=== PATIENT | female | born 1995 | race Two or more races ===

== ENCOUNTER 2019-07-13 22:12 | Emergency (ER) | payer MEDICAID ==
[~2019-07-13] VITALS: Ht 162.6 cm; Wt 65.8 kg
[~2019-07-13 22:12] MED LIST: PRENCAP87 PO
[2019-07-13 22:30] VITALS: BP 124/76
== END 2019-07-14 02:04 | disposition left against medical advice (07) ==
LOC: ER 22:15
DX: J02.9 Acute pharyngitis, unspecified (principal); Z53.21 Procedure and treatment not carried out due to patient leaving prior to being seen by health care provider

== ENCOUNTER 2020-03-23 17:41 | Emergency (ER) | payer MEDICAID ==
[~2020-03-23] VITALS: Ht 162.6 cm; Wt 65.8 kg
[2020-03-23 18:52] VITALS: BP 133/78
== END 2020-03-23 19:39 | disposition home or self-care (01) ==
LOC: ER 17:41
DX: T17.208A Unspecified foreign body in pharynx causing other injury, initial encounter (principal); J02.9 Acute pharyngitis, unspecified; X58.XXXA Exposure to other specified factors, initial encounter; Y93.89 Activity, other specified; Y92.89 Other specified places as the place of occurrence of the external cause; Y99.8 Other external cause status
CPT/HCPCS: 70490; 81025

== ENCOUNTER 2021-04-27 10:41 | Emergency (ER) | payer MEDICAID ==
[~2021-04-27] VITALS: Ht 160 cm; Wt 69.4 kg
[2021-04-27 11:52] LABS: Basophils # (auto) 0 10 ^3/uL (0-0.2); Basophils % (auto) 0.5 % (0.0-2.0); Eosinophils # (auto) 0.3 10 ^3/uL (0-0.8); Eosinophils % (auto) 5.4 % (0.0-7.0); Hematocrit 38.4 % (36.0-46.0); Hemoglobin 13.2 g/dL (12.2-16.2); Lymphocytes # (auto) 2.1 10 ^3/uL (0.4-5.4); Lymphocytes % (auto) 35.3 % (10.0-50.0); Mean Corpuscular Hemoglobin 31.4 pg (28.0-32.0); Mean Corpuscular Hgb Conc. 34.3 g/dL (32.0-36.0); Mean Corpuscular Volume 91.6 fL (80.0-100.0); Monocytes # (auto) 0.4 10 ^3/uL (0-1.3); Monocytes % (auto) 6.2 % (0.0-12.0); Neutrophils # (auto) 3.1 10 ^3/uL (1.6-8.6); Neutrophils % (auto) 52.6 % (37.0-80.0); Nucleated Red Blood Cells % 0.1 %; Red Blood Cells 4.19 10^6/uL (4.0-5.20); Red Cell Distribution Width 13.1 % (11.8-14.3)
[2021-04-27 12:11] LABS: Urine Bacteria NONE SEEN /hpf (None Seen); Urine Blood Negative /uL (Negative); Urine Mucus FEW (None Seen); Urine Specific Gravity 1.029 (1.001-1.035); Urine WBC 12 /hpf (0 - 5)
[2021-04-27 12:18] LABS: Albumin 3.8 g/dL (3.4-5.0); Potassium 3.8 mmol/L (3.5-5.1)
[2021-04-27 12:22] LABS: BUN/Creatinine Ratio 11.9; Bilirubin, Total 0.5 mg/dL (0.2-1.0)
[2021-04-27 12:23] LABS: Amphetamine Screen, Urine NEGATIVE (NEGATIVE); Barbiturate Scree,Urine NEGATIVE (NEGATIVE); Benzodiazephine Screen, Urine NEGATIVE (NEGATIVE); Cannabinoid Screen, Urine NEGATIVE (NEGATIVE); Cocaine Screen, Urine NEGATIVE (NEGATIVE); Opiate Scree,Urine NEGATIVE (NEGATIVE); Phencyclidine Screen, Urine NEGATIVE (NEGATIVE)
[2021-04-27 13:18] LABS: Alcohol, Urine < 3.0 mg/dL (0-10)
[2021-04-27 13:34] VITALS: BP 129/80
[2021-04-27] MEDS ORDERED: LIDOCAINE 1% HCL (LOCAL ANESTH.) INJ 20ML MDV ONE (14:30)
[2021-04-27] MEDS ORDERED: cefTRIAXone SOD 1,000 MG VL IM ONE (14:30)
== END 2021-04-27 14:45 | disposition home or self-care (01) ==
LOC: ER 10:41
DX: O23.41 Unspecified infection of urinary tract in pregnancy, first trimester (principal); N39.0 Urinary tract infection, site not specified; J45.909 Unspecified asthma, uncomplicated; Z90.49 Acquired absence of other specified parts of digestive tract; Z79.899 Other long term (current) drug therapy; Z91.013 Allergy to seafood; Z3A.00 Weeks of gestation of pregnancy not specified
CPT/HCPCS: 36415; 76801; 76817; 80053; 80307; 81001; 84702; 85025; 96372; 99284; J0696; J2001

== ENCOUNTER → 2021-06-09 | Outpatient (CLI) | payer MEDICAID | END | disposition home or self-care (01) | LOC: LAB 10:10 | PROVIDERS: ATTEND Obstetrics & Gynecology | DX: Z34.80 Encounter for supervision of other normal pregnancy, unspecified trimester (principal) ==

== ENCOUNTER 2021-09-30 12:14 | Observation (INO) | payer MEDICAID | END 2021-09-30 13:35 | disposition home or self-care (01) | LOC: LDRP 12:14 | PROVIDERS: ADMIT Obstetrics & Gynecology; ATTEND Obstetrics & Gynecology | DX: O26.892 Other specified pregnancy related conditions, second trimester (principal); R42 Dizziness and giddiness; Z3A.27 27 weeks gestation of pregnancy | CPT/HCPCS: 59025; 81002; 94760; G0378 ==

== ENCOUNTER → 2021-11-25 | Outpatient (CLI) | payer MEDICAID ==
[2021-11-25 11:21] LABS: Basophils # (auto) 0 10 ^3/uL (0-0.2); Basophils % (auto) 0.2 % (0.0-2.0); Eosinophils # (auto) 0.2 10 ^3/uL (0-0.8); Eosinophils % (auto) 2.1 % (0.0-7.0); Hemoglobin 13.7 g/dL (12.2-16.2); Lymphocytes # (auto) 1.7 10 ^3/uL (0.4-5.4); Lymphocytes % (auto) 22.3 % (10.0-50.0); Mean Corpuscular Hemoglobin 31.8 pg (28.0-32.0); Mean Corpuscular Hgb Conc. 34.3 g/dL (32.0-36.0); Mean Corpuscular Volume 92.9 fL (80.0-100.0); Monocytes # (auto) 0.5 10 ^3/uL (0-1.3); Monocytes % (auto) 7.2 % (0.0-12.0); Neutrophils # (auto) 5.1 10 ^3/uL (1.6-8.6); Neutrophils % (auto) 68.2 % (37.0-80.0); Nucleated Red Blood Cells % 0.2 %; Red Cell Distribution Width 14.2 % (11.8-14.3); White Blood Cell 7.5 10^3/uL (4.4-10.8)
[2021-11-26 06:07] LABS: RPR Non Reactive (Non Reactive)
== END | disposition home or self-care (01) ==
LOC: LAB 10:40
PROVIDERS: ATTEND Obstetrics & Gynecology
DX: Z34.80 Encounter for supervision of other normal pregnancy, unspecified trimester (principal)
CPT/HCPCS: 36415; 84112; 85025; 86592

== ENCOUNTER 2021-11-29 20:05 | Observation (INO) | payer MEDICAID ==
[~2021-11-29] VITALS: Ht 162.6 cm; Wt 88.5 kg
[2021-11-29] MEDS ORDERED: LACTATED RINGER'S 1,000 ML IV ONE (20:45)
[2021-11-29] MEDS: TERBUTALINE SULFATE 1 MG/ML 1ML VIAL SC SCH ×3 (21:10→22:33)
[2021-11-29] MEDS ORDERED: NIF10C PO (21:12)
[2021-11-29] MEDS ORDERED: BETAMETHASONE ACET (30mg/5ml) 5ml Vial 6mg/ml IM ONE (21:15)
[2021-11-29] MEDS ORDERED: NIFEdipine 10 MG CAP PO ONE (21:15)
[2021-11-30] MEDS ORDERED: ONDA-144 PO (22:34)
== END 2021-11-29 23:40 | disposition home or self-care (01) ==
LOC: LDRP 20:05
PROVIDERS: ADMIT Obstetrics & Gynecology; ATTEND Obstetrics & Gynecology
DX: O60.03 Preterm labor without delivery, third trimester (principal); O09.213 Supervision of pregnancy with history of pre-term labor, third trimester; O26.893 Other specified pregnancy related conditions, third trimester; R11.0 Nausea; Z3A.36 36 weeks gestation of pregnancy
CPT/HCPCS: 59025; 81002; 94760; 96372; G0378; J0702; J3105

== ENCOUNTER 2021-11-30 21:27 | Observation (INO) | payer MEDICAID ==
[~2021-11-30] VITALS: Ht 162.6 cm; Wt 88.0 kg
[~2021-11-30 21:27] MED LIST changes: +NIF10C PO
[2021-11-30] MEDS ORDERED: BETAMETHASONE ACET (30mg/5ml) 5ml Vial 6mg/ml IM ONE (22:00)
[2021-11-30] MEDS ORDERED: ACETAMINOPHEN 325 MG TAB PO ONE (22:15)
[2021-11-30] MEDS ORDERED: ONDA-144 PO (22:34)
[2021-11-30 22:55] LABS: Basophils # (auto) 0 10 ^3/uL (0-0.2); Basophils % (auto) 0.2 % (0.0-2.0); Eosinophils # (auto) 0.1 10 ^3/uL (0-0.8); Eosinophils % (auto) 0.6 % (0.0-7.0); Hematocrit 37.6 % (36.0-46.0); Hemoglobin 12.5 g/dL (12.2-16.2); Lymphocytes # (auto) 1.9 10 ^3/uL (0.4-5.4); Lymphocytes % (auto) 20.7 % (10.0-50.0); Mean Corpuscular Hgb Conc. 33.3 g/dL (32.0-36.0); Monocytes # (auto) 0.7 10 ^3/uL (0-1.3); Monocytes % (auto) 7.9 % (0.0-12.0); Neutrophils # (auto) 6.6 10 ^3/uL (1.6-8.6); Neutrophils % (auto) 70.6 % (37.0-80.0); Red Blood Cells 4.04 10^6/uL (4.0-5.20); Red Cell Distribution Width 14.3 % (11.8-14.3); White Blood Cell 9.4 10^3/uL (4.4-10.8)
[2021-11-30 23:00] LABS: Urine Bacteria NONE SEEN /hpf (None Seen); Urine Blood Negative /uL (Negative); Urine Mucus FEW (None Seen); Urine Specific Gravity 1.034 (1.001-1.035); Urine WBC 11 /hpf (0 - 5)
[2021-11-30 23:10] LABS: INR 0.88 (0.9-1.15); Partial Thromboplastin Time 24.8 sec (24.6-33.4)
[2021-11-30 23:13] LABS: Protein, Urine 23.6 mg/dL (0.0-11.9)
[2021-11-30 23:14] LABS: Albumin 2.7 g/dL (3.4-5.0); Calcium 8.8 mg/dL (8.5-10.1); Potassium 4.1 mmol/L (3.5-5.1)
[2021-11-30 23:21] LABS: BUN/Creatinine Ratio 16.9; Bilirubin, Total 0.3 mg/dL (0.2-1.0); Total Protein 6.2 g/dL (6.4-8.2); Uric Acid 4.7 mg/dL (2.6-6.0)
== END 2021-11-30 23:50 | disposition home or self-care (01) ==
LOC: LDRP 21:27
PROVIDERS: ADMIT Obstetrics & Gynecology Obstetrics; ATTEND Obstetrics & Gynecology Obstetrics
DX: O62.9 Abnormality of forces of labor, unspecified (principal); O26.893 Other specified pregnancy related conditions, third trimester; R51.9 Headache, unspecified; O12.03 Gestational edema, third trimester; Z3A.36 36 weeks gestation of pregnancy
CPT/HCPCS: 36415; 59025; 80053; 81001; 81002; 82570; 84156; 84550; 85025; 85610; 85730; 94760; 96372; G0378; J0702

== ENCOUNTER 2021-12-08 23:26 | Observation (INO) | payer MEDICAID ==
[~2021-12-08 23:26] MED LIST changes: +ONDA-144 PO
== END 2021-12-09 02:32 | disposition home or self-care (01) ==
LOC: LDRP 23:26
PROVIDERS: ADMIT Obstetrics & Gynecology; ATTEND Obstetrics & Gynecology
DX: O62.9 Abnormality of forces of labor, unspecified (principal); O99.891 Other specified diseases and conditions complicating pregnancy; M54.9 Dorsalgia, unspecified; Z3A.37 37 weeks gestation of pregnancy
CPT/HCPCS: 59025; 81002; G0378

== ENCOUNTER 2021-12-13 14:05 | Observation (INO) | payer MEDICAID ==
[2021-12-13 16:13] LABS: Urine Bacteria FEW /hpf (None Seen); Urine Blood Negative /uL (Negative); Urine Mucus FEW (None Seen); Urine Specific Gravity 1.025 (1.001-1.035); Urine WBC 2 /hpf (0 - 5)
== END 2021-12-13 16:52 | disposition home or self-care (01) ==
LOC: LDRP 14:05
PROVIDERS: ADMIT Obstetrics & Gynecology; ATTEND Obstetrics & Gynecology
DX: O42.92 Full-term premature rupture of membranes, unspecified as to length of time between rupture and onset of labor (principal); O62.9 Abnormality of forces of labor, unspecified; Z3A.38 38 weeks gestation of pregnancy
CPT/HCPCS: 59025; 81001; 81002; 84112; 94760; G0378; Q0114

== ENCOUNTER 2021-12-15 07:15 | Observation (INO) | payer MEDICAID ==
[~2021-12-15] VITALS: Ht 162.6 cm; Wt 88.5 kg
== END 2021-12-15 09:33 | disposition home or self-care (01) ==
LOC: LDRP 07:52 → UNDOADMOB 07:52 → LDRP 07:55
PROVIDERS: ADMIT Obstetrics & Gynecology; ATTEND Obstetrics & Gynecology
DX: O62.9 Abnormality of forces of labor, unspecified (principal); Z3A.38 38 weeks gestation of pregnancy
CPT/HCPCS: 59025; 76818; 81002; 94760; G0378

== ENCOUNTER 2021-12-15 18:50 | Inpatient (IN) | payer MEDICAID ==
[~2021-12-15] VITALS: Ht 162.6 cm; Wt 90.7 kg
[2021-12-15] MEDS ORDERED: PROMETHAZINE HCL 25 MG/ML 1ML IV PRN (19:30)
[2021-12-15] MEDS ORDERED: BUTORPHANOL TARTRATE 2 MG/1 ML VIAL IV PRN ×2 (19:30)
[2021-12-15] MEDS ORDERED: NS/OXYTOCIN 20UNITS 500 ML IV ONE ×2 (19:30→20:00)
[2021-12-15] MEDS ORDERED: LACTATED RINGER'S 1,000 ML IV SCH (19:30)
[2021-12-15] MEDS ORDERED: PHISODERM TOP SOLN 240ML BTL TOP PRN (19:30)
[2021-12-15] MEDS ORDERED: WITCH HAZEL-GLYCERIN PAD TOP PRN (19:30)
[2021-12-15] MEDS ORDERED: DERMOPLAST 60ML BOTTLE TOP PRN (19:30)
[2021-12-15] MEDS ORDERED: LIDOCAINE 2%HCL (LOCAL ANESTH.) INJ 10ml MDV IJ PRN (19:30)
[2021-12-15 20:46] LABS: Basophils # (auto) 0 10 ^3/uL (0-0.2); Basophils % (auto) 0.2 % (0.0-2.0); Eosinophils # (auto) 0.1 10 ^3/uL (0-0.8); Eosinophils % (auto) 1.1 % (0.0-7.0); Hematocrit 37.6 % (36.0-46.0); Hemoglobin 12.3 g/dL (12.2-16.2); Lymphocytes % (auto) 26.8 % (10.0-50.0); Mean Corpuscular Hemoglobin 31.1 pg (28.0-32.0); Mean Corpuscular Hgb Conc. 32.8 g/dL (32.0-36.0); Mean Corpuscular Volume 94.8 fL (80.0-100.0); Monocytes # (auto) 0.6 10 ^3/uL (0-1.3); Monocytes % (auto) 8.7 % (0.0-12.0); Neutrophils # (auto) 4.6 10 ^3/uL (1.6-8.6); Neutrophils % (auto) 63.2 % (37.0-80.0); Red Blood Cells 3.97 10^6/uL (4.0-5.20); Red Cell Distribution Width 14.6 % (11.8-14.3); White Blood Cell 7.3 10^3/uL (4.4-10.8)
[2021-12-15 20:54] LABS: INR 0.87 (0.9-1.15); Partial Thromboplastin Time 26.3 sec (24.6-33.4)
[2021-12-15] MEDS ORDERED: NS/OXYTOCIN 20UNITS 1,000 ML IV SCH (21:00)
[2021-12-15 21:07] LABS: Albumin 2.6 g/dL (3.4-5.0); BUN/Creatinine Ratio 15.4; Calcium 8.4 mg/dL (8.5-10.1); Potassium 3.6 mmol/L (3.5-5.1)
[2021-12-15 21:11] LABS: Bilirubin, Total 0.2 mg/dL (0.2-1.0); Total Protein 6.1 g/dL (6.4-8.2)
[2021-12-15 21:17] LABS: Urine Bacteria NONE SEEN /hpf (None Seen); Urine Blood 1+ /uL (Negative); Urine Hyaline Cast FEW /lpf (0 - 2); Urine Specific Gravity 1.019 (1.001-1.035); Urine WBC 10 /hpf (0 - 5)
[2021-12-15 21:25] LABS: Amphetamine Screen, Urine NEGATIVE (NEGATIVE); Barbiturate Scree,Urine NEGATIVE (NEGATIVE); Benzodiazephine Screen, Urine NEGATIVE (NEGATIVE); Cannabinoid Screen, Urine NEGATIVE (NEGATIVE); Cocaine Screen, Urine NEGATIVE (NEGATIVE); Opiate Scree,Urine NEGATIVE (NEGATIVE); Phencyclidine Screen, Urine NEGATIVE (NEGATIVE)
[2021-12-16] MEDS ORDERED: ACETAMINOPHEN 325 MG TAB PO PRN (00:30)
[2021-12-16] MEDS ORDERED: ONDANSETRON ODT 4 MG TAB PO PRN (00:30)
[2021-12-16] MEDS: IBUPROFEN 600 MG TAB PO PRN ×2 (00:53→18:46)
[2021-12-16 03:30] VITALS: BP 104/62
[2021-12-16 07:00] VITALS: BP 111/67
[2021-12-16 11:00] VITALS: BP 112/68
[2021-12-16 15:00] VITALS: BP 114/68
[2021-12-16 18:30] VITALS: BP 119/77
[2021-12-16 22:30] VITALS: BP 115/64
[2021-12-17 03:00] VITALS: BP 120/70
[2021-12-17] MEDS: IBUPROFEN 600 MG TAB PO PRN (03:43)
[2021-12-17 06:48] VITALS: BP 112/63
[2021-12-17 08:06] LABS: RPR Non Reactive (Non Reactive)
[2021-12-17 09:50] VITALS: BP 112/68
== END 2021-12-17 09:50 | disposition home or self-care (01) | DRG 560 ==
LOC: LDRP 18:50 → OBSVTOIN 19:15 → LDRP 20:04
PROVIDERS: ADMIT Obstetrics & Gynecology; ATTEND Obstetrics & Gynecology
PROC: 10E0XZZ Delivery of Products of Conception, External Approach (ICD-10-PCS; principal; 2021-12-16)
DX: O69.81X0 Labor and delivery complicated by cord around neck, without compression, not applicable or unspecified (principal); Z37.0 Single live birth; J45.909 Unspecified asthma, uncomplicated; O99.52 Diseases of the respiratory system complicating childbirth; Z3A.38 38 weeks gestation of pregnancy; Z20.822 Contact with and (suspected) exposure to COVID-19
CPT/HCPCS: 36415; 59025; 59409; 80053; 80307; 81001; 81002; 85025; 85610; 85730; 86592; 86850; 86900; 86901; 94760; 96360; 96361; 96365; 96366; G0378

== ENCOUNTER 2023-04-16 20:02 | Emergency (ER) | payer MEDICAID ==
[~2023-04-16] VITALS: Ht 160 cm; Wt 85.2 kg
[~2023-04-16 20:02] MED LIST changes: -NIF10C PO; -ONDA-144 PO
[2023-04-16 20:47] LABS: Urine Bacteria NONE SEEN /hpf (None Seen); Urine Blood Negative /uL (Negative); Urine Clarity Clear (Clear); Urine Color Colorless (Yellow); Urine Mucus FEW (None Seen); Urine Protein, UAD Negative (Negative); Urine Specific Gravity 1.018 (1.001-1.035); Urine Urobilinogen Normal (Negative); Urine WBC 4 /hpf (0 - 5); Urine pH 7.5 (5.0-8.0)
[2023-04-16 21:20] LABS: Basophils # (auto) 0 10 ^3/uL (0-0.2); Basophils % (auto) 0.1 % (0.0-2.0); Eosinophils # (auto) 0.2 10 ^3/uL (0-0.8); Hematocrit 38.9 % (36.0-46.0); Hemoglobin 13.4 g/dL (12.2-16.2); Lymphocytes # (auto) 0.7 10 ^3/uL (0.4-5.4); Lymphocytes % (auto) 21.4 % (10.0-50.0); Mean Corpuscular Hemoglobin 31.3 pg (28.0-32.0); Mean Corpuscular Hgb Conc. 34.4 g/dL (32.0-36.0); Mean Corpuscular Volume 91.1 fL (80.0-100.0); Monocytes # (auto) 0.3 10 ^3/uL (0-1.3); Monocytes % (auto) 8.1 % (0.0-12.0); Neutrophils % (auto) 65.4 % (37.0-80.0); Nucleated Red Blood Cells % 0.1 %; Red Blood Cells 4.27 10^6/uL (4.0-5.20); Red Cell Distribution Width 12.7 % (11.8-14.3); White Blood Cell 3.1 10^3/uL (4.4-10.8)
[2023-04-16 21:27] LABS: Alanine Aminotransferase 100 U/L (7-40); Alkaline Phosphatase 58 U/L (46-116); Anion Gap 8 (5-15); Aspartate Aminotransferase 60 U/L (13-40); BUN/Creatinine Ratio 14.5 (10.0-20.0); Blood Urea Nitrogen 10 mg/dL (9-23); Calcium 9.2 mg/dL (8.5-10.1); Carbon Dioxide 27 mmol/L (20-30); Chloride 101 mmol/L (98-107); Glucose 82 mg/dL (74-106); Potassium 3.9 mmol/L (3.5-5.1); Sodium 136 mmol/L (136-145)
[2023-04-16 21:28] LABS: Albumin 4.7 g/dL (3.2-4.8); Bilirubin, Total 0.5 mg/dL (0.2-1.0); Total Protein 7.5 g/dL (5.7-8.2)
[2023-04-16 21:39] LABS: Rapid Influenza A Negative (Negative); Rapid Influenza B Negative (Negative)
[2023-04-16 21:41] LABS: COVID19 ANTIGEN SOFIA FIA NEGATIVE (NEGATIVE)
[2023-04-16] MEDS ORDERED: IBUPROFEN 400 MG TAB PO ONE (22:00)
[2023-04-16 22:30] VITALS: PULSE 132; RESP 16; O2SAT 97
[2023-04-16] MEDS ORDERED: SODIUM CHLORIDE 0.9% 1,000 ML IV ONE (23:30)
[2023-04-17 01:10] VITALS: BP 127/82; PULSE 122; RESP 16; TEMP 99.9; O2SAT 99
== END 2023-04-17 01:24 | disposition home or self-care (01) ==
LOC: ER 20:02
DX: B34.9 Viral infection, unspecified (principal); R07.89 Other chest pain; J45.909 Unspecified asthma, uncomplicated; Z90.49 Acquired absence of other specified parts of digestive tract; Z20.822 Contact with and (suspected) exposure to COVID-19
CPT/HCPCS: 36415; 80053; 81001; 83605; 85025; 87426; 87804; 93005; 96360; 99285; J7030

== ENCOUNTER 2024-04-29 19:45 | Emergency (ER) | payer MEDICAID ==
[~2024-04-29] VITALS: Ht 162.6 cm; Wt 80.8 kg
[2024-04-29] MEDS ORDERED: AUG875T PO (21:12)
[2024-04-29] MEDS ORDERED: METH4PAK PO (21:12)
[2024-04-29] MEDS ORDERED: ALBUAER3 IN (21:12)
--- NOTE | 2024-04-29 21:13 | ED.PDOC ---
Eye-HPI HPI Comments 29-YEAR-OLD ASTHMATIC FEMALE PRESENTS TO THE ED CHIEF COMPLAINT SORE THROAT. STATES RELATED SYMPTOMS OF COUGH AND CONGESTION. IT HAS BEEN GOING ON FOR 2 DAYS TRIED [id number] MEDICATIONS WITHOUT RELIEF. NOTES THROAT SWELLING AND DIFFICULTY SWALLOWING WELL. DENIES RECENT CONTACTS OR RECENT TRAVEL. DENIES DIFFICULTY BREATHING, SHORTNESS OF BREATH, CHEST PAIN, NAUSEA, VOMITING, DIARRHEA, OR ABDOMINAL PAIN Chief Complaint: Sore Throat Time Seen by MD: 19:46 Primary Care Provider: CHRISTINA PMLita Reviewed Notes: Nurses Notes, Medications, Allergies Allergies: Coded Allergies: Ibuprofen (Verified Allergy, Mild, RASH, 04/29/24) Shellfish Allergy (Verified Allergy, Unknown, 11/30/21) Uncoded Allergies: SHRIMP (Allergy, Mild, 11/15/10) Home Meds Reported Medications Vit W/ Ferrous Fumara ( MULTI +DHA) +Dha Cap, 1 TAB PO DAILY, CAP 05/19/13 Information Source: Patient Mode of Arrival: Ambulatory Past Medical History PAST MEDICAL HISTORY: Asthma Surgical History: Cholecystectomy Family History Family History: Reviewed,noncontributory to illness Social History Smoker: Non-Smoker Alcohol: Denies ETOH Use Drugs: Denies Drug Use Lives In: Home Constitutional: reports: chills, fever; denies: diaphoresis, fatigue, malaise, sweats, weakness, others EENTM: reports: nasal discharge, throat pain, throat swelling; denies: blurred vision, double vision, ear bleeding, ear discharge, ear drainage, ear pain, ear ringing, eye pain, eye redness, hearing loss, mouth pain, mouth swelling, nose bleeding, nose congestion, nose pain, photophobia, tearing, voice changes, others Respiratory: reports: cough; denies: hemoptysis, orthopnea, SOB at rest, shortness of breath, SOB with excertion, stridor, wheezing, others Cardiovascular: denies: chest pain, dizzy spells, diaphoresis, Dyspnea on exertion, edema, irregular heart beat, left arm pain, lightheadedness, palpitations, PND, syncope, others Gastrointestinal: denies: abdomen distended, abdominal pain, blood streaked bowels, constipated, diarrhea, dysphagia, difficulty swallowing, hematemesis, melena, nausea, poor appetite, poor fluid intake, rectal bleeding, rectal pain, vomiting, others Genitourinary: denies: abnormal vagina bleeding, burning, dyspareunia, dysuria, flank pain, frequency, hematuria, incontinence, pain, , vagina discharge, urgency, others Neurological: denies: dizziness, fainting, headache, left sided numbness, left sided weakness, numbness, paresthesia, pre-existing deficit, right sided numbness, right sided weakness, seizure, speech problems, tingling, tremors, weakness, others Musculoskeletal: denies: back pain, gout, joint pain, joint swelling, muscle pain, muscle stiffness, neck pain, others Integumetry: denies: bruises, change in color, change in hair/nails, dryness, laceration, lesions, lumps, rash, wounds, others Allergic/Immunocompromised: denies: Difficulty Healing, Frequent Infections, Hives, Itching, others Hematologic/Lymphatic: denies: anemia, blood clots, easy bleeding, easy bruising, swollen glands, others Endocrine: denies: excessive hunger, excessive sweating, excessive thirst, excessive urination, flushing, intolerance to cold, intolerance to heat, unexplained weight gain, unexplained weight loss, others Psychiatric: denies: anxiety, bipolar disorder, depression, hopeless, panic disorder, schizophrenia, sleepless, suicidal, others Physical Exam General Appearance: No Apparent Distress, Normal HEENT: Pharyngeal Erythema, TMs Normal, Tonsillar Exudate (RIGHT SIDE TONSILLAR EXUDATE GRADE 3 TONSILS) Neck: Full Range of Motion, Non-Tender Respiratory: Chest Non-Tender, Lungs Clear, No Respiratory Distress, Normal Breath Sounds Cardiovascular: No Edema, No JVD, No Murmur, No Gallop, Normal Peripheral Pulses, Regular Rate/Rhythm Breast Exam: Deferred Gastrointestinal: No Organomegaly, Non Tender, No Pulsatile Mass, Normal Bowel Sounds, Soft Genitalia: Deferred Pelvic: Deferred Rectal: Deferred Extremities: Normal capillary refill, Normal inspection, Normal range of motion, Non-tender, No pedal edema Musculoskeletal : Apperance: Normal Neurologic: Alert, night cleaner II-XII nml as Tested, No Motor Deficits, Normal Affect, Normal Mood, No Sensory Deficits Cerebellar Function: Normal Reflexes: Normal Skin: Dry, Normal Color, Warm Lymphatic: No Adenopathy Was a procedure done? Was a procedure done?: No EENT DIFF Eye: N/A Sore Throat: Streptococcal X-Ray, Labs, Meds, VS Vital Signs Date Time Temp Pulse Resp B/P (MAP) Pulse Ox O2 Delivery O2 Flow Rate FiO2 04/29/24 21:04 97 Room Air 0 04/29/24 20:00 98.7 131 18 124/77 (93) 97 X-Ray, Labs, Meds, VS Comment LIKELY BACTERIAL TONSILLITIS. WE WILL TREAT WITH AUGMENTIN TWICE DAILY TIMES 10 DAYS AND A MEDROL DOSEPAK ADVISED TO REST INCREASE P.O. FLUIDS WITH ELECTROLYTES FOLLOW UP WITH PCP IN 2-3 DAYS NECESSARY ER RETURN PRECAUTIONS GIVEN PATIENT INDICATED UNDERSTANDING AGREES WITH DISCHARGE PLAN OF CARE. Time of 1ST Reevaluation: 21:09 Reevaluation 1ST: Improved Patient Education/Counseling: Diagnosis, Treatment, Prognosis, Need For Follow Up Family Education/Counseling: No Family Present Departure 1 Departure Time of Disposition: 21:10 Impression: Primary Impression: Acute tonsillitis Qualified Codes: J03.90 - Acute tonsillitis, unspecified Disposition: HOME / SELF CARE / HOMELESS Condition: Stable e-Prescriptions Albuterol Sulfate (VENTOLIN MDI) 90 Mcg Ih 180 MCG IN Q6HP PRN for 15 Days, #1 INHALER 1-2 PUFFS EVERY 4-6 HOURS NEEDED FOR COUGH, SHORTNESS OF BREATH, OR WHEEZING Prov: HANS JARRELL 04/29/24 Methylprednisolone (Medrol Dosepak) 4 Mg Yoshi 4 MG PO UD for 6 Days, #21 TAB UAD Prov: HANS JARRELL 04/29/24 Amoxicillin & Pot Clavulanate (AUGMENTIN TABLET) 875 Mg Tb 1 TAB PO BID for 10 Days, #20 TAB Prov: HANS AJRRELL 04/29/24 Discharged With: Self Critical Care Note Critical Care Time?: No Stability Stability form required: No HANS JARRELL Apr 29, 2024 21:12
[2024-04-29 22:04] VITALS: BP 123/76; PULSE 89; RESP 20; TEMP 98.6; O2SAT 98
== END 2024-04-29 22:38 | disposition home or self-care (01) ==
LOC: ER 19:45
DX: J03.90 Acute tonsillitis, unspecified (principal); J45.909 Unspecified asthma, uncomplicated; Z88.6 Allergy status to analgesic agent; Z90.49 Acquired absence of other specified parts of digestive tract; Z91.013 Allergy to seafood